=== PATIENT | male | born 1985 | race Caucasian/White ===

== ENCOUNTER → 2016-04-11 | Outpatient (CLI) | payer OTHER ==
[2016-04-11 17:53] LABS: URINE APPEARANCE CLEAR (CLEAR); URINE BILIRUBIN NEG (NEG); URINE COLOR YELLOW; URINE EPITHELIAL CELL AUTO 0-5 /lpf (0-5); URINE NITRITE NEG (NEG); URINE SPECIFIC GRAVITY 1.006 (1.000-1.030); UROBILINOGEN NEG (NEG); ZZUR CULT IF INDIC CLEAN CATCH NO
[2016-04-11 17:54] LABS: MANUAL MICROSCOPIC REQUIRED? NO; REVIEW REQ? NO
== END | disposition home or self-care (01) ==
LOC: C.LAB1850 16:31
PROVIDERS: ATTEND Internal Medicine
DX: R31.9 Hematuria, unspecified (principal)

== ENCOUNTER → 2016-04-26 | Outpatient (CLI) | payer OTHER | END | disposition home or self-care (01) | LOC: C.PATHSPEC 17:11 | PROVIDERS: ATTEND Urology | DX: R31.9 Hematuria, unspecified (principal) ==

== ENCOUNTER → 2016-05-02 | Outpatient (CLI) | payer OTHER ==
[~2016-05-02] MED LIST: OPTIRAY 320 IV PRN
--- NOTE | 2016-05-02 12:25 | DIAGNOSTIC IMAGING REPORT ---
ABDOMEN AND PELVIS CT WITH AND WITHOUT IV CONTRAST, UROGRAM PROTOCOL CT DOSE: 1509.74 mGycm HISTORY: R31.9 Hematuria NPR TECHNIQUE: Multiaxial CT images of the abdomen and pelvis were performed both before and after the use of intravenous contrast to evaluate the urinary system. Maximal intensity projection images were performed at the workstation by the radiologist. COMPARISON STUDY: Renal ultrasound 07/28/2013 FINDINGS: No renal or ureteral calculi. No hydronephrosis. No suspicious filling defects seen within the bilateral renal collecting systems, ureters, or bladder. The distal right ureter proximal left ureter are not well opacified. There is a 2.3 cm left peripelvic renal cyst. A 3 mm nodule within the right lower lobe on image 2. This is of doubtful clinical significance given its small size and the patient's age. The left lung base is clear. The liver, spleen, right adrenal gland, and pancreas are unremarkable. No renal masses. There is an 8 mm left adrenal gland nodule. No retroperitoneal lymphadenopathy. There is a left circumaortic renal vein. No bowel wall thickening or obstruction. Normal appendix. IMPRESSION: 1. No renal or ureteral stones. No hydronephrosis. 2. No suspicious filling defects seen within the opacified bilateral renal collecting systems, ureters, or bladder. 3. Cholelithiasis. 4. A 3 mm nodule within the right lower lobe. This is of doubtful clinical significance given its small size and the patient's age. 5. An 8 mm left adrenal gland nodule which is indeterminate. Electronically signed by: Jesus Gillespie M.D. 05/02/2016 12:23 PM Dictated Date/Time: 05/02/2016 12:11 PM
== END | disposition home or self-care (01) ==
LOC: C.CTS 11:25
PROVIDERS: ATTEND Urology
DX: R31.9 Hematuria, unspecified (principal); K80.20 Calculus of gallbladder without cholecystitis without obstruction